=== PATIENT | male | born 1960 | race Caucasian/White ===

== ENCOUNTER 2017-05-27 21:18 | Emergency (ER) | payer MEDICAID, SELFPAY ==
[2017-05-27 21:18] VITALS: BP 112/88; PULSE 128; RESP 18; TEMP 37.2; O2SAT 96; BMI 23.0
--- NOTE | 2017-05-27 21:41 | PC.NURSE ---
per Sobeida Cooper RN pt refused IV and blood draw.
[2017-05-27 23:08] LABS: Microscopic, Urine URINE MICROSCOPIC (MICROSCOPIC)
[2017-05-27 23:13] LABS: Appearance,Urine CLEAR (Clear); Blood, Urine Negative (Negative); Color,Urine YELLOW (Yellow); Glucose,Urine (UA) Negative (Negative); Ketones,Urine 2+ (Negative); Leukocyte Esterase,Urine Negative (Negative); Nitrate,Urine Negative (Negative); PH,Urine 5.5 (5.0-8.5); Protein,Urine TRACE (Negative); Specific Gravity, Urine >= 1.030 (1.005-1.030); Urobilinogen,Urine 0.2 EU/dl (0.2)
[2017-05-27 23:16] LABS: Bilirubin,Urine Negative (Negative)
[2017-05-27 23:17] LABS: Amorphous Sediment,Urine Trace /lpf; Amphetamine/Metha Screen,Urine Positive ng/mL (<1000); Barbiturates Screen,Urine Negative ng/mL (<200); Benzodiazepines Screen,Urine Negative ng/mL (200); Cannabinoid Screen,Urine Negative ng/mL (<50); Cocaine Screen,Urine Negative ng/g (<300); Methadone Screen,Urine Negative ng/mL (<300); Mucus,Urine 2+ /lpf; Opiate Screen,Urine Positive ng/mL (<300); Phencyclidine Screen,Urine Negative ng/mL (<25); WBC,Urine Occasional #/hpf (0-3)
[2017-05-28 03:18] VITALS: BP 125/79; PULSE 89; RESP 15; O2SAT 93
--- NOTE | 2017-05-28 04:27 | [facility].EDNEU ---
ED Disposition Clinical Impression: Misuse of drugs Disposition: Home, Self-Care Condition on Discharge: Good Instructions: DI for Drug Abuse and Drug Addiction Additional Instructions: see pcp for follow up Referrals: Gomez Wynne MD [Primary Care Provider] - - Critical Care Critical Care Time: No Attestation: On 05/27/17, the high probability of a clinically significant, sudden or life threatening deterioration of the following system(s) required my full and direct attention, intervention and personal management. The time I documented below is in addition to time spent performing reported procedures but includes the following listed in this critical care notation. Medical Decision Making - Medical Records Medical records reviewed: Yes: I reviewed the patient's medical records. - Alexander Inquiry Pt receiving controlled substance: No Vital Signs: 05/27/17 21:18 05/28/17 03:18 Temperature 98.9 F Temperature Source Oral Pulse Rate [Brachial] 128 H 89 Respiratory Rate 18 15 Blood Pressure [Right Arm] 112/88 125/79 Blood Pressure Mean [Right Arm] 96 94 Blood Pressure Source [Right Arm] Automatic Cuff Automatic Cuff Blood Pressure Position [Right Arm] Supine Supine 02 Sat by Pulse Oximetry 96 93 L Oxygen Delivery Method Room Air Room Air - Lab Data Lab Results 05/27/17 22:58: Urine Color Yellow, Urine Appearance Clear, Urine pH 5.5, Ur Specific [place] >= 1.030, Urine Protein Trace, Urine Glucose (UA) Negative, Urine Ketones 2+, Urine Blood Negative, Urine Nitrate Negative, Urine Bilirubin Negative, Urine Urobilinogen 0.2, Ur Leukocyte Esterase Negative, Urine WBC Occasional, Amorphous Sediment Trace, Urine Mucus 2+ 05/27/17 22:58: Urine Opiates Screen Positive H, Ur Barbituates Screen Negative, Ur Phencyclidine Scrn Negative, Ur Amphetamines Screen Positive H, U Methamphetamines Scrn Negative, U Benzodiazepines Scrn Negative, Urine Cocaine Screen Negative, U Marijuana (THC) Screen Negative Orders (Tests/Meds): ORDERS Category Date Time Status CBC w/Auto Diff [Complete Blood Count Auto Diff] Stat Lab 05/27/17 21:28 Ordered CMP [Comprehensive Metabolic Panel] Stat Lab 05/27/17 21:29 Ordered Neuro HPI - General Chief Complaint: Overdose Stated Complaint: overdose Time Seen by Provider: 05/28/17 04:27 Mode of Arrival: EMS Source of Information: Patient, EMS, Medical Record Limitations: No Limitations Description of Symptoms (Recalled from ER Triage Doc. by RN): friend called ambulance patient reports he had been smoking meth and loratab earlier today. reports that he was seeing and hearing things that wasn't there - History of Present Illness HPI Narrative: pt reports abusing drugs sec to anxiety Onset (ago): day(s) Timing confirmed by: family member Location: altered History of same: Yes Severity: moderate - Related Data Home Medications: Home Medications Medication Instructions Recorded Confirmed Tizanidine HCl [Zanaflex] 4 mg PO DAILY 05/28/17 05/28/17 Allergies/Adverse Reactions: Allergies Allergy/AdvReac Type Severity Reaction Status Date / Time ERYTHROMYCIN Allergy Unknown Uncoded 02/22/17 14:48 Stroke Alert/NIH Score - LOC Stroke Alert: No H History I have reviewed the patient's past medical history: Yes ROS Obtained: Yes All systems reviewed & no additional complaints - Constitutional Constitutional: Denies fever(s) - Eyes Eyes: Denies change in vision - ENT Ears, Nose, Mouth, and Throat: Denies sore throat - Cardiovascular Cardiovascular: Denies chest pain - Respiratory Respiratory: No cough - Gastrointestinal Gastrointestingal: Denies: abdominal pain - Musculoskeletal Musculoskeletal: Denies joint pain - Integumentary/Breasts Skin/Breast: Denies rash - Neurologic Neurologic: Denies seizure-like activity Physical Exam - General General appearance: in no apparent distress - Head Head exam:
--- NOTE | 2017-05-28 04:30 | ED_ITS ---
ED Disposition Clinical Impression: Misuse of drugs Disposition: Home, Self-Care Condition on Discharge: Good Instructions: DI for Drug Abuse and Drug Addiction Additional Instructions: see pcp for follow up Referrals: Gomez Wynne MD [Primary Care Provider] - - Critical Care Critical Care Time: No Attestation: On 05/27/17, the high probability of a clinically significant, sudden or life threatening deterioration of the following system(s) required my full and direct attention, intervention and personal management. The time I documented below is in addition to time spent performing reported procedures but includes the following listed in this critical care notation. Medical Decision Making - Medical Records Medical records reviewed: Yes: I reviewed the patient's medical records. - Alexander Inquiry Pt receiving controlled substance: No Vital Signs: 05/27/17 21:18 05/28/17 03:18 Temperature 98.9 F Temperature Source Oral Pulse Rate [Brachial] 128 H 89 Respiratory Rate 18 15 Blood Pressure [Right Arm] 112/88 125/79 Blood Pressure Mean [Right Arm] 96 94 Blood Pressure Source [Right Arm] Automatic Cuff Automatic Cuff Blood Pressure Position [Right Arm] Supine Supine 02 Sat by Pulse Oximetry 96 93 L Oxygen Delivery Method Room Air Room Air - Lab Data Lab Results 05/27/17 22:58: Urine Color Yellow, Urine Appearance Clear, Urine pH 5.5, Ur Specific [place] >= 1.030, Urine Protein Trace, Urine Glucose (UA) Negative, Urine Ketones 2+, Urine Blood Negative, Urine Nitrate Negative, Urine Bilirubin Negative, Urine Urobilinogen 0.2, Ur Leukocyte Esterase Negative, Urine WBC Occasional, Amorphous Sediment Trace, Urine Mucus 2+ 05/27/17 22:58: Urine Opiates Screen Positive H, Ur Barbituates Screen Negative , Ur Phencyclidine Scrn Negative, Ur Amphetamines Screen Positive H, U Methamphetamines Scrn Negative, U Benzodiazepines Scrn Negative, Urine Cocaine Screen Negative, U Marijuana (THC) Screen Negative Orders (Tests/Meds): ORDERS Category Date Time Status CBC w/Auto Diff [Complete Blood Count Auto Diff] Stat Lab 05/27/17 21:28 Ordered CMP [Comprehensive Metabolic Panel] Stat Lab 05/27/17 21:29 Ordered Neuro HPI - General Chief Complaint: Overdose Stated Complaint: overdose Time Seen by Provider: 05/28/17 04:27 Mode of Arrival: EMS Source of Information: Patient, EMS, Medical Record Limitations: No Limitations Description of Symptoms (Recalled from ER Triage Doc. by RN): friend called ambulance patient reports he had been smoking meth and loratab earlier today. reports that he was seeing and hearing things that wasn't there - History of Present Illness HPI Narrative: pt reports abusing drugs sec to anxiety Onset (ago): day(s) Timing confirmed by: family member Location: altered History of same: Yes Severity: moderate - Related Data Home Medications: Home Medications Medication Instructions Recorded Confirmed Tizanidine HCl [Zanaflex] 4 mg PO DAILY 05/28/17 05/28/17 Allergies/Adverse Reactions: Allergies Allergy/AdvReac Type Severity Reaction Status Date / Time ERYTHROMYCIN Allergy Unknown Uncoded 02/22/17 14:48 Stroke Alert/NIH Score - LOC Stroke Alert: No H History I have reviewed the patient's past medical
[2017-05-28 04:35] VITALS: BP 00/00; PULSE 85; RESP 16; TEMP 37; O2SAT 99
--- NOTE | 2017-05-28 05:22 | PC.NURSE ---
Patient has attempted multiple times to reach someone for a car ride. Pt reports he may not be able to find a ride until 9am. aware.
--- NOTE | 2017-05-28 11:22 | PC.NURSE ---
Pt's ride arrived at [id number]
== END 2017-05-28 10:45 | disposition home or self-care (01) ==
PROVIDERS: Emergency Provider Emergency Medicine; Family Provider Emergency Medicine; PCP Emergency Medicine
DX: F19.99 Other psychoactive substance use, unspecified with unspecified psychoactive substance-induced disorder (principal); F41.9 Anxiety disorder, unspecified
CPT/HCPCS: 80305; 81001; 99282